=== PATIENT | male | born 1985 | race Caucasian/White ===

== ENCOUNTER 2020-03-22 13:57 | Emergency (ER) | payer MEDICAID, OTHER ==
[~2020-03-22] VITALS: Ht 175.3 cm; Wt 80.0 kg
[~2020-03-22 13:57] MED LIST: CEPH500C2; NAPR-681; SULF-165
[2020-03-22 14:06] VITALS: BP 110/64
[2020-03-22] MEDS ORDERED: KETOROLAC 30MG/ML VIAL IM ONE (14:45)
[2020-03-22] MEDS ORDERED: BACITRACIN ZINC OINT UDPKT TOP ONE (14:45)
== END 2020-03-22 15:40 | disposition home or self-care (01) ==
LOC: ER 13:57
DX: S61.431A Puncture wound without foreign body of right hand, initial encounter (principal); W29.8XXA Contact with other powered hand tools and household machinery, initial encounter; Y93.89 Activity, other specified; Y92.89 Other specified places as the place of occurrence of the external cause; R03.0 Elevated blood-pressure reading, without diagnosis of hypertension; F12.90 Cannabis use, unspecified, uncomplicated
CPT/HCPCS: 73130; 96372; 99283; J1885

== ENCOUNTER 2021-09-27 14:24 | Emergency (ER) | payer OTHER, MEDICAID ==
[~2021-09-27] VITALS: Ht 167.6 cm; Wt 74.0 kg
[2021-09-27 14:25] VITALS: BP 144/77
== END 2021-09-27 17:08 | disposition home or self-care (01) ==
LOC: ER 14:24
DX: T67.8XXA Other effects of heat and light, initial encounter (principal); R53.1 Weakness; F15.10 Other stimulant abuse, uncomplicated; F12.10 Cannabis abuse, uncomplicated; Z59.00 Homelessness unspecified; X58.XXXA Exposure to other specified factors, initial encounter; Y93.89 Activity, other specified; Y92.89 Other specified places as the place of occurrence of the external cause
CPT/HCPCS: 82962; 99283